=== PATIENT | female | born 2000 | race Caucasian/White ===

== ENCOUNTER 2021-01-03 16:28 | Emergency (ER) | payer BC ==
[~2021-01-03] VITALS: Ht 160 cm; Wt 68.0 kg
[2021-01-03] MEDS ORDERED: LORazepam INJ 2 MG/ML (ATIVAN) VIAL IVP PRN (16:45)
--- NOTE | 2021-01-03 16:53 | ED General ---
General Stated Complaint: ELEVATED HR Source of Information: Patient Exam Limitations: No Limitations History of Present Illness Date Seen by Provider: Jan 03, 2021 Time Seen by Provider: 16:50 Initial Comments To ER with reports of a panic attack. This began about 3 PM. She has a history of these and they typically go away. However the tachycardia and palpitations persist and she continues to feel quite anxious. She is never had one last this long. No recent illnesses. No unilateral leg swelling no oral contraceptive use. Timing/Duration: 1-2 Days Severity: Moderate Associated Systoms: Denies Symptoms Allergies and Home Medications Allergies Coded Allergies: No Known Drug Allergies (Unverified , 01/03/21) Patient Home Medication List Home Medication List Reviewed: Yes Review of Systems Review of Systems Constitutional: see HPI EENTM: see HPI Respiratory: no symptoms reported Cardiovascular: see HPI, palpitations Genitourinary: no symptoms reported Musculoskeletal: no symptoms reported Skin: no symptoms reported Psychiatric/Neurological: See HPI, Anxiety Hematologic/Lymphatic: No Symptoms Reported Immunological/Allergic: no symptoms reported Physical Exam Vital Signs Vital Signs - First Documented 01/03/21 16:35 Pulse 123 Resp 30 B/P (MAP) 135/76 (95) Pulse Ox 97 O2 Delivery Room Air Capillary Refill : Height, Weight, BMI Height: '" Weight: lbs. oz. kg; BMI Method: General Appearance: No Apparent Distress, WD/WN, Anxious Eyes: Bilateral Eye Normal Inspection, Bilateral Eye PERRL, Bilateral Eye EOMI HEENT: PERRL/EOMI, TMs Normal Neck: Full Range of Motion, Normal Inspection Respiratory: No Accessory Muscle Use, No Respiratory Distress Cardiovascular: Tachycardia Gastrointestinal: Normal Bowel Sounds, Non Tender, Soft Extremity: Normal Capillary Refill, Normal Inspection, Other (Does have some bruising to both knees which she states is from a rugby tournament this past weekend.) Neurologic/Psychiatric: Alert, Oriented x3 Skin: Normal Color, Warm/Dry Progress/Results/Core Measures Suspected Sepsis SIRS Temperature: Pulse: Respiratory Rate: Laboratory Tests 01/03/21 16:48: White Blood Count 7.1 Blood Pressure / Mean: Laboratory Tests 01/03/21 16:48: Creatinine 0.83, Platelet Count 255, Total Bilirubin 0.6 Results/Orders Lab Results Laboratory Tests Test 01/03/21 16:48 Range/Units White Blood Count 7.1 4.3-11.0 10^3/uL Red Blood Count 4.58 3.80-5.11 10^6/uL Hemoglobin 14.0 11.5-16.0 g/dL Hematocrit 39 35-52 % Mean Corpuscular Volume 86 80-99 fL Mean Corpuscular Hemoglobin 31 25-34 pg Mean Corpuscular Hemoglobin Concent 36 32-36 g/dL Red Cell Distribution Width 11.4 10.0-14.5 % Platelet Count 255 130-400 10^3/uL Mean Platelet Volume 10.5 9.0-12.2 fL Immature Granulocyte % (Auto) 0 % Neutrophils (%) (Auto) 62 42-75 % Lymphocytes (%) (Auto) 31 12-44 % Monocytes (%) (Auto) 6 0-12 % Eosinophils (%) (Auto) 0 0-10 % Basophils (%) (Auto) 1 0-10 % Neutrophils # (Auto) 4.4 1.8-7.8 10^3/uL Lymphocytes # (Auto) 2.2 1.0-4.0 10^3/uL Monocytes # (Auto) 0.4 0.0-1.0 10^3/uL Eosinophils # (Auto) 0.0 0.0-0.3 10^3/uL Basophils # (Auto) 0.1 0.0-0.1 10^3/uL Immature Granulocyte # (Auto) 0.0 0.0-0.1 10^3/uL D-Dimer <= 0.27 0.00-0.49 UG/ML Sodium Level 138 135-145 MMOL/L Potassium Level 3.3 L 3.6-5.0 MMOL/L Chloride Level 107 98-107 MMOL/L Carbon Dioxide Level 21 21-32 MMOL/L Anion Gap 10 5-14 MMOL/L Blood Urea Nitrogen 8 7-18 MG/DL Creatinine 0.83 0.60-1.30 MG/DL Estimat Glomerular Filtration Rate 87 BUN/Creatinine Ratio 10 Glucose Level 115 H 70-105 MG/DL Calcium Level 9.5 8.5-10.1 MG/DL Corrected Calcium 8.5-10.1 MG/DL Total Bilirubin 0.6 0.1-1.0 MG/DL Aspartate Amino Transf (AST/SGOT) 24 5-34 U/L Alanine Aminotransferase (ALT/SGPT) 24 0-55 U/L Alkaline Phosphatase 46 40-136 U/L B-Type Natriuretic Peptide 12.2 <100.0 PG/ML Total Protein 7.5 6.4-8.2 GM/DL Albumin 4.7 H 3.2-4.5 GM/DL Serum Test, Qualitative NEGATIVE NEGATIVE My Orders Orders - GREG HERNÁNDEZ APRN Cbc With Automated Diff (01/03/21 16:41) Hcg,Qualitative Serum (01/03/21 16:41) Ed Iv/Invasive Line Start (01/03/21 16:41) Comprehensive Metabolic Panel (01/03/21 16:41) Ekg Tracing (01/03/21 16:41) Chest 1 View, Ap/Pa Only (01/03/21 16:41) BNP (01/03/21 16:41) Fibrin Degradation Products (01/03/21 16:41) Lorazepam Injection (Ativan Injection) (01/03/21 16:45) Medications Given in ED Current Medications Medications Dose Ordered Sig/Ganesh Route Start Time Stop Time Status Last Admin Dose Admin Lorazepam 0.5 mg ONCE PRN IVP 01/03/21 16:45 01/03/21 17:39 0.5 MG Vital Signs/I&O 01/03/21 16:35 Pulse 123 Resp 30 B/P (MAP) 135/76 (95) Pulse Ox 97 O2 Delivery Room Air Capillary Refill : Departure Communication (Admissions) EKG shows a sinus tachycardia rate of 116 normal intervals no ectopy no ST segment change Impression Primary Impression: Anxiety Disposition: 01 HOME, SELF-CARE Condition: Stable Departure-Patient Inst. Decision time for Depature: 18:23 Referrals: NO,LOCAL PHYSICIAN (PCP/Family) Primary Care Physician Patient Instructions: Anxiety, Adult ED GREG HERNÁNDEZ APRN Jan 03, 2021 16:53
[2021-01-03 17:01] LABS: BASOPHILS # (AUTO) 0.1 10^3/uL (0.0-0.1); BASOPHILS % (AUTO) 1 % (0-10); EOSINOPHILS % (AUTO) 0 % (0-10); HEMATOCRIT 39 % (35-52); LYMPHOCYTES # (AUTO) 2.2 10^3/uL (1.0-4.0); LYMPHOCYTES % (AUTO) 31 % (12-44); MEAN CORPUSCULAR HEMOGLOBIN 31 pg (25-34); MEAN CORPUSCULAR HGB CONC 36 g/dL (32-36); MEAN CORPUSCULAR VOLUME 86 fL (80-99); MEAN PLATELET VOLUME 10.5 fL (9.0-12.2); MONOCYTES # (AUTO) 0.4 10^3/uL (0.0-1.0); MONOCYTES % (AUTO) 6 % (0-12); NEUTROPHILS # (AUTO) 4.4 10^3/uL (1.8-7.8); NEUTROPHILS % (AUTO) 62 % (42-75); PLATELET COUNT 255 10^3/uL (130-400); WHITE BLOOD COUNT 7.1 10^3/uL (4.3-11.0)
[2021-01-03 17:09] LABS: ALBUMIN 4.7 GM/DL (3.2-4.5); CHLORIDE 107 MMOL/L (98-107); POTASSIUM 3.3 MMOL/L (3.6-5.0); SODIUM 138 MMOL/L (135-145)
[2021-01-03 17:10] LABS: CALCIUM 9.5 MG/DL (8.5-10.1)
[2021-01-03 17:11] LABS: GLUCOSE 115 MG/DL (70-105); TOTAL PROTEIN 7.5 GM/DL (6.4-8.2)
[2021-01-03 17:12] LABS: CARBON DIOXIDE 21 MMOL/L (21-32)
[2021-01-03 17:13] LABS: BILIRUBIN,TOTAL 0.6 MG/DL (0.1-1.0)
[2021-01-03 17:15] LABS: ALKALINE PHOSPHATASE 46 U/L (40-136); CREATININE SERUM 0.83 MG/DL (0.60-1.30); GFR ESTIMATED 87
[2021-01-03 17:16] LABS: BUN/CREATININE RATIO 10
[2021-01-03 17:18] LABS: ALANINE AMINOTRANSFERASE 24 U/L (0-55)
--- NOTE | 2021-01-03 18:12 | Diagnostic Imaging Report ---
EXAM: CHEST 1 VIEW, AP/PA ONLY INDICATION: Palpitations. Chest pain. COMPARISON: None. FINDINGS: Normal heart size and pulmonary vascularity. No dense consolidation, pleural effusion or pneumothorax. No acute osseous findings. IMPRESSION: No acute cardiopulmonary findings. Dictated by: Dictated on workstation # [id number]
[2021-01-03 18:54] VITALS: BP 126/77
== END 2021-01-03 18:54 | disposition home or self-care (01) ==
LOC: ER 16:30
DX: F41.9 Anxiety disorder, unspecified (principal)
CPT/HCPCS: 36415; 71045; 80053; 83880; 84703; 85025; 85379; 93005; 96374